=== PATIENT | female | born 1985 | race African-American/Black ===

== ENCOUNTER 2020-06-14 19:04 | Emergency (ER) | payer MEDICAID ==
[~2020-06-14] VITALS: Ht 165.1 cm; Wt 75.0 kg
[~2020-06-14 19:04] MED LIST: PREN-88 PO
[2020-06-14] MEDS ORDERED: SULFAMETHOXAZOLE/TRIMETHOPRIM 800/160MG TABLET PO ONE (22:30)
[2020-06-15] MEDS ORDERED: SULF1TAB48 MT (00:55)
[2020-06-15 01:37] VITALS: BP 141/89
== END 2020-06-15 01:39 | disposition home or self-care (01) ==
LOC: ER 19:04
DX: T78.40XA Allergy, unspecified, initial encounter (principal); Z88.0 Allergy status to penicillin; Z88.1 Allergy status to other antibiotic agents; I49.9 Cardiac arrhythmia, unspecified; X58.XXXA Exposure to other specified factors, initial encounter
CPT/HCPCS: 93005; 99283

== ENCOUNTER 2020-08-10 02:23 | Emergency (ER) | payer MEDICAID ==
[~2020-08-10] VITALS: Ht 172.7 cm; Wt 80.0 kg
[~2020-08-10 02:23] MED LIST changes: +SULF1TAB48 MT
[2020-08-10] MEDS: ONDANSETRON 4MG ODT PO STA (03:26)
[2020-08-10] MEDS: LORAZEPAM 1MG TABLET PO ONE (03:26)
[2020-08-10 04:08] VITALS: BP 130/76
== END 2020-08-10 04:10 | disposition home or self-care (01) ==
LOC: ER 02:23
DX: F41.9 Anxiety disorder, unspecified (principal); R00.2 Palpitations; I10 Essential (primary) hypertension; Z88.1 Allergy status to other antibiotic agents
CPT/HCPCS: 99283; Q0162

== ENCOUNTER 2021-08-14 15:19 | Emergency (ER) | payer MEDICAID ==
[~2021-08-14] VITALS: Ht 167.6 cm; Wt 73.0 kg
[~2021-08-14 15:19] MED LIST changes: +IBUP-2029 MT; +iron
[2021-08-14] MEDS ORDERED: SODIUM CHLORIDE 0.9% 1,000 ML IV ONE (15:30)
[2021-08-14] MEDS ORDERED: HYDRALAZINE HCL 25MG TABLET PO ONE (15:45)
[2021-08-14 16:07] LABS: CLARITY URINE CLEAR (CLEAR); COLOR URINE YELLOW (YELLOW); KETONES URINE NEGATIVE (NEGATIVE); LEUKOCYTE ESTERASE URINE NEGATIVE (NEGATIVE); NITRITE URINE NEGATIVE (NEGATIVE); OCCULT BLOOD URINE NEGATIVE (NEGATIVE); PH URINE 6.5 (4.5-8.0); PROTEIN URINE NEGATIVE (NEGATIVE); SPECIFIC GRAVITY URINE 1.007 (1.005-1.030); UROBILINOGEN URINE 0.2 E.U./dL (0.2-1.0)
[2021-08-14 16:13] LABS: BASOPHILS % 0.4 % (0.0-2.0); EOSINOPHILS % 3.2 % (0.0-5.0); HEMOGLOBIN. 10.9 g/dL (12.0-16.0); LYMPHOCYTES % 26.4 % (20.0-50.0); MEAN CORPUSCULAR HEMOGLOBIN 24.4 pg (28.0-32.0); MEAN CORPUSCULAR VOLUME 78.3 fL (81.0-99.0); MEAN PLATELET VOLUME 8.3 fl (7.4-10.4); MONOCYTES % 5.3 % (2.0-8.0); NEUTROPHILS % 64.7 % (40.0-76.0); PLATELET 350 x1000/uL (130-400); RED BLOOD CELL COUNT 4.47 mill/uL (4.2-5.4); RED CELL DISTRIBUTION WIDTH 22.4 % (11.6-14.6)
[2021-08-14 16:22] LABS: CHLORIDE 103 mEq/L (98-107)
[2021-08-14 16:34] LABS: HCG SCREEN NEGATIVE
[2021-08-14 16:49] LABS: PLATELET ESTIMATE NORMAL
[2021-08-14] MEDS ORDERED: CLIN-194 MT (17:12)
[2021-08-14] MEDS ORDERED: IBUP-2028 MT (17:12)
[2021-08-14 18:15] VITALS: BP 158/87
== END 2021-08-14 18:30 | disposition home or self-care (01) ==
LOC: ER 15:19
DX: I10 Essential (primary) hypertension (principal); K08.89 Other specified disorders of teeth and supporting structures; R42 Dizziness and giddiness; D64.9 Anemia, unspecified; Z98.890 Other specified postprocedural states; Z88.0 Allergy status to penicillin
CPT/HCPCS: 36415; 71045; 80053; 81003; 83880; 84484; 84703; 85025; 93005; 96360; 96361; 99285; J7030

== ENCOUNTER 2021-11-20 16:30 | Emergency (ER) | payer MEDICAID ==
[~2021-11-20] VITALS: Ht 170.2 cm; Wt 90.0 kg
[~2021-11-20 16:30] MED LIST changes: +CLIN-194 MT; +IBUP-2028 MT
[2021-11-20 16:33] VITALS: BP 160/90
[2021-11-20] MEDS ORDERED: LORAZEPAM 0.5MG TABLET PO ONE (16:45)
[2021-11-20 17:18] LABS: BASOPHILS % 0.5 % (0.0-2.0); EOSINOPHILS % 1.4 % (0.0-5.0); HEMOGLOBIN. 10.9 g/dL (12.0-16.0); LYMPHOCYTES % 24.2 % (20.0-50.0); MEAN CORPUSCULAR HEMOGLOBIN 26.3 pg (28.0-32.0); MEAN CORPUSCULAR VOLUME 81.6 fL (81.0-99.0); MEAN PLATELET VOLUME 8.9 fl (7.4-10.4); MONOCYTES % 5.1 % (2.0-8.0); NEUTROPHILS % 68.8 % (40.0-76.0); PLATELET 322 x1000/uL (130-400); RED BLOOD CELL COUNT 4.16 mill/uL (4.2-5.4); RED CELL DISTRIBUTION WIDTH 17.9 % (11.6-14.6)
[2021-11-20 17:25] LABS: CHLORIDE 106 mEq/L (98-107)
[2021-11-20] MEDS ORDERED: POTASSIUM CHLORIDE 20MEQ TABLET SR PO ONE (18:00)
== END 2021-11-20 19:17 | disposition home or self-care (01) ==
LOC: ER 16:30
DX: R00.2 Palpitations (principal); E87.6 Hypokalemia; R00.0 Tachycardia, unspecified; I10 Essential (primary) hypertension; Z98.890 Other specified postprocedural states; Z88.1 Allergy status to other antibiotic agents; Z88.0 Allergy status to penicillin
CPT/HCPCS: 36415; 71045; 80053; 81025; 84484; 85025; 93005; 99285

== ENCOUNTER 2022-12-08 14:18 | Emergency (ER) | payer MEDICAID ==
[~2022-12-08] VITALS: Ht 167.6 cm; Wt 73.0 kg
[2022-12-08 14:24] VITALS: BP 190/107; PULSE 103; RESP 18; TEMP 99.6; O2SAT 98
[2022-12-08] MEDS ORDERED: IBUP-2029 MT (14:53)
[2022-12-08] MEDS ORDERED: CHLO118L5 TP (14:53)
== END 2022-12-08 15:06 | disposition home or self-care (01) ==
LOC: ER 14:18
DX: S03.2XXA Dislocation of tooth, initial encounter (principal); D64.9 Anemia, unspecified; K08.89 Other specified disorders of teeth and supporting structures; I10 Essential (primary) hypertension; Z98.890 Other specified postprocedural states; Z79.899 Other long term (current) drug therapy; X58.XXXA Exposure to other specified factors, initial encounter; Y93.89 Activity, other specified; Y92.89 Other specified places as the place of occurrence of the external cause; Y99.8 Other external cause status
CPT/HCPCS: 99283

== ENCOUNTER 2023-01-06 20:38 | Emergency (ER) | payer MEDICAID ==
[~2023-01-06] VITALS: Ht 165.1 cm; Wt 73.0 kg
[~2023-01-06 20:38] MED LIST changes: -CLIN-194 MT; -IBUP-2028 MT; -PREN-88 PO; -SULF1TAB48 MT
[2023-01-06 20:43] VITALS: BP 161/77; O2SAT 99
[2023-01-06 21:25] LABS: DIFFERENTIAL COMMENT 0; EOSINOPHILS % 6.4 % (0.0-5.0); HEMATOCRIT. 30.9 % (36.0-48.0); HEMOGLOBIN. 9.5 g/dL (12.0-16.0); LYMPHOCYTES % 22.5 % (20.0-50.0); MEAN CORPUSCULAR HEMOGLOBIN 23.3 pg (28.0-32.0); MEAN CORPUSCULAR HGB CONC 30.9 g/dL (31.0-37.0); MEAN CORPUSCULAR VOLUME 75.5 fL (81.0-99.0); MEAN PLATELET VOLUME 8.2 fl (7.4-10.4); MONOCYTES % 8.7 % (2.0-8.0); NEUTROPHILS % 61.4 % (40.0-76.0); PLATELET 563 x1000/uL (130-400); RED CELL DISTRIBUTION WIDTH 19.2 % (11.6-14.6); WHITE BLOOD COUNT 9.4 x1000/uL (4.5-11.0)
[2023-01-06 21:48] LABS: HCG SCREEN NEGATIVE
[2023-01-06 21:56] LABS: ALANINE AMINOTRANSFERASE 11 IU/L (10-49); ALBUMIN 4.3 g/dL (3.2-4.8); ASPARTATE AMINOTRANSFERASE 16 IU/L (<34); BILIRUBIN TOTAL 0.4 mg/dL (0.1-1.0); CARBON DIOXIDE 23 mEq/L (21-32); CHLORIDE 104 mEq/L (98-107); CREATININE 0.7 mg/dL (0.6-1.0); GLUCOSE 71 mg/dL (70-105); POTASSIUM 3.5 mEq/L (3.5-5.1); PROTEIN TOTAL 8.1 g/dL (6.0-8.3); SODIUM 138 mEq/L (136-145); UREA NITROGEN BLOOD 7 mg/dL (9-23)
[2023-01-06 22:07] LABS: TROPONIN I HIGH SENSITIVITY < 4 ng/L (3.0-34)
[2023-01-06] MEDS ORDERED: DOCU-150 MT (22:37)
[2023-01-06 23:30] VITALS: PULSE 107; RESP 18; TEMP 98.4
== END 2023-01-06 23:31 | disposition home or self-care (01) ==
LOC: ER 20:38
DX: R07.9 Chest pain, unspecified (principal); R00.2 Palpitations; F41.9 Anxiety disorder, unspecified; J45.909 Unspecified asthma, uncomplicated; I10 Essential (primary) hypertension; F10.10 Alcohol abuse, uncomplicated; Z98.890 Other specified postprocedural states; Z88.8 Allergy status to other drugs, medicaments and biological substances; Y90.9 Presence of alcohol in blood, level not specified
CPT/HCPCS: 36415; 80053; 83880; 84484; 84703; 85025; 93005; 99284

== ENCOUNTER 2024-01-23 16:19 | Emergency (ER) | payer MEDICAID ==
[~2024-01-23] VITALS: Ht 167.6 cm; Wt 80.0 kg
[~2024-01-23 16:19] MED LIST changes: +DOCU-422 MT
[2024-01-23 16:45] VITALS: O2SAT 100
[2024-01-23 19:15] VITALS: BP 132/68; PULSE 71; RESP 16; TEMP 36.83628; O2SAT 100
== END 2024-01-23 19:16 | disposition home or self-care (01) ==
LOC: ER 16:19
DX: T19.2XXA Foreign body in vulva and vagina, initial encounter (principal); I10 Essential (primary) hypertension; Z88.1 Allergy status to other antibiotic agents; Z98.890 Other specified postprocedural states; F41.9 Anxiety disorder, unspecified; F10.90 Alcohol use, unspecified, uncomplicated; Y90.0 Blood alcohol level of less than 20 mg/100 ml; W44.9XXA Unspecified foreign body entering into or through a natural orifice, initial encounter; Y93.89 Activity, other specified; Y92.89 Other specified places as the place of occurrence of the external cause; Y99.8 Other external cause status
CPT/HCPCS: 99284; Z7610

== ENCOUNTER 2024-03-14 16:46 | Emergency (ER) | payer MEDICAID ==
[~2024-03-14] VITALS: Ht 167.6 cm; Wt 75.0 kg
[2024-03-14 16:52] VITALS: PULSE 96; RESP 15; O2SAT 100
[2024-03-14 17:02] VITALS: BP 185/110; O2SAT 98
[2024-03-14 21:14] LABS: BASOPHILS % 0.8 % (0.0-2.0); DIFFERENTIAL COMMENT 0; EOSINOPHILS % 1.7 % (0.0-5.0); HEMOGLOBIN. 9.9 g/dL (12.0-16.0); LYMPHOCYTES % 27.7 % (20.0-50.0); MEAN CORPUSCULAR HEMOGLOBIN 23.7 pg (28.0-32.0); MEAN CORPUSCULAR VOLUME 76.4 fL (81.0-99.0); MEAN PLATELET VOLUME 8.3 fl (7.4-10.4); MONOCYTES % 4.7 % (2.0-8.0); NEUTROPHILS % 65.1 % (40.0-76.0); PLATELET 363 x1000/uL (130-400); WHITE BLOOD COUNT 9.4 x1000/uL (4.5-11.0)
[2024-03-14 21:24] LABS: CHLORIDE 106 mEq/L (98-107); POTASSIUM 3.7 mEq/L (3.5-5.1); SODIUM 139 mEq/L (136-145)
[2024-03-14 21:25] LABS: CARBON DIOXIDE 22 mEq/L (21-32)
[2024-03-14 21:26] LABS: CALCIUM 9.6 mg/dL (8.7-10.4); HCG SCREEN NEGATIVE
[2024-03-14 21:30] LABS: CREATININE 0.8 mg/dL (0.6-1.0); GLUCOSE 79 mg/dL (70-105); UREA NITROGEN BLOOD 7 mg/dL (9-23)
[2024-03-14 21:44] LABS: TROPONIN I HIGH SENSITIVITY < 4 ng/L (3.0-34)
[2024-03-14] MEDS ORDERED: ACETAMINOPHEN 500MG TABLET PO NR (23:15)
[2024-03-14 23:24] VITALS: TEMP 98.5
[2024-03-14] MEDS: ACETAMINOPHEN 500MG TABLET PO ONE (23:24)
== END 2024-03-14 23:31 | disposition home or self-care (01) ==
LOC: ER 16:46
DX: B34.9 Viral infection, unspecified (principal); F41.9 Anxiety disorder, unspecified; I10 Essential (primary) hypertension; F10.90 Alcohol use, unspecified, uncomplicated; Z98.890 Other specified postprocedural states; Z88.0 Allergy status to penicillin; Z88.1 Allergy status to other antibiotic agents; Y90.9 Presence of alcohol in blood, level not specified
CPT/HCPCS: 36415; 80048; 84484; 84703; 85025; 99283